=== PATIENT | male | born 1985 ===

== ENCOUNTER 2021-07-31 19:44 | Inpatient (IN) | payer SELFPAY ==
[~2021-07-31] VITALS: Ht 165.1 cm; Wt 75.9 kg
--- NOTE | 2021-07-31 20:14 | ED GI ---
General Chief Complaint: Abdominal/GI Problems Stated Complaint: BLOOD IN STOOL - ABD PAIN Source of Information: Spouse ( DOES ALL TALKING AND INTERPRETATION; ) Exam Limitations: Language Barrier (PT DOES NOT SPEAK MONTSERRATIAN) History of Present Illness Date Seen by Provider: Jul 31, 2021 Time Seen by Provider: 20:00 Initial Comments PT ARRIVES VIA POV FROM HOME WITH PT HAS BEEN HAVING ABDOMINAL PAIN AND BLOODY DIARRHEA X 3 WEEKS HAS HAD 4 BLOODY STOOLS TODAY PAIN INITIALLY WAS IN BOTH LOWER QUADRANTS, AND NOW IS MOSTLY IN LEFT UPPER QUADRANT HAD BEEN HAVING NAUSEA AND VOMITING, BUT NONE SINCE LAST Friday07/26/21 PT BEGAN RUNNING FEVER OF 100.4 LAST PM NORMALLY THE PAIN GOES AWAY AFTER HE HAS A BM, BUT SINCE LAST NIGHT THE PAIN HAS BEEN CONSTANT AND IN LEFT UPPER QUADRANT PT HAS BEEN URINATING NORMALLY HAS HAD DECREASED APPETITE, BUT IS DRINKING FLUIDS OK. HAD CHICKEN BROTH/SOUP AROUND 1500 TODAY. NO HISTORY OF SIMILAR OR ANY GI PROBLEMS OR ANY SURGERIES WENT TO [facility] ON FRIDAY FOR THIS PROBLEM-HAD SOME LAB, WAS TOLD HE WAS ANEMIC AND WAS STARTED ON IRON PILLS STATES PT TOOK 1 LEFT OVER AMOXIL THEY HAD AT HOME THIS AM BECAUSE HE THOUGHT IT MIGHT HELP PCP: [facility] Allergies and Home Medications Allergies Coded Allergies: No Known Drug Allergies (Unverified , 07/31/21) Patient Home Medication List Home Medication List Reviewed: Yes Review of Systems Review of Systems Constitutional: see HPI, fever Respiratory: No Symptoms Reported Cardiovascular: No Symptoms Reported Gastrointestinal: See HPI, Abdominal Pain, Diarrhea, Nausea, Rectal Bleeding, Vomiting Genitourinary: No Symptoms Reported Musculoskeletal: no symptoms reported Skin: no symptoms reported Psychiatric/Neurological: No Symptoms Reported Endocrine: No Symptoms Reported Hematologic/Lymphatic: No Symptoms Reported Past Rdwrmip-Xpqvdn-Zdgwdp Hx Patient Social History Tobacco Use?: No Smoking Status: Never a Smoker Smokeless Tobacco Frequency: Never a User Use of E-Cig and/or Vaping Jorje: Never a User Substance use?: No Alcohol Use?: Yes Alcohol type: Beer Alcohol Frequency: Once in a while Past Medical History Surgeries: No Respiratory: No Cardiac: No Neurological: No Reproductive Disorders: No Genitourinary: No Gastrointestinal: No Musculoskeletal: No Endocrine: No HEENT: No Cancer: No Psychosocial: No Integumentary: No Blood Disorders: No Physical Exam Vital Signs Vital Signs - First Documented 07/31/21 19:49 Temp 36.1 Pulse 104 Resp 18 B/P (MAP) 127/79 (95) Pulse Ox 99 O2 Delivery Room Air Capillary Refill : Height/Weight/BMI Height: '" Weight: lbs. oz. kg; BMI Method: General Appearance: WD/WN, no apparent distress, other (WALKS UPRIGHT AND MOVES WITHOUT DIFFICULTY, THEN LAYS COMPLETELY OUTSTRETCHED. 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, no motor/sensory deficits, alert, normal mood/affect, oriented x 3 Skin: normal color (PT IS ), warm/dry; No rash Focused Exam Sepsis Stage: Sepsis Possible Source: GI Tract/Intra-Abdominal Lactate Level 07/31/21 20:14: Lactic Acid Level 0.94 Time of Focused Exam: 21:30 Respiratory: Normal Breath Sounds, No Accessory Muscle Use, No Respiratory Distress Cardiovascular: Regular Rate, Rhythm, No Murmur Capillary Refill: Less Than 3 Seconds Skin: normal color, warm/dry Lactic Acid Level Laboratory Tests Test 07/31/21 20:14 Lactic Acid Level 0.94 MMOL/L (0.50-2.00) Within 3hrs of presentation: Admin fluids, Admin ABX, Blood cultures prior to ABX's, Focus exam, Lactate level Progress/Results/Core Measures Results/Orders Lab Results Laboratory Tests Test 07/31/21 20:14 07/31/21 20:18 07/31/21 20:40 Range/Units Lactic Acid Level 0.94 0.50-2.00 MMOL/L Procalcitonin 0.04 <0.10 NG/ML White Blood Count 18.4 H 4.3-11.0 10^3/uL Red Blood Count 3.51 L 4.30-5.52 10^6/uL Hemoglobin 10.0 L 13.3-17.7 g/dL Hematocrit 29 L 40-54 % Mean Corpuscular Volume 83 80-99 fL Mean Corpuscular Hemoglobin 29 25-34 pg Mean Corpuscular Hemoglobin Concent 34 32-36 g/dL Red Cell Distribution Width 12.2 10.0-14.5 % Platelet Count 658 H 130-400 10^3/uL Mean Platelet Volume 8.6 L 9.0-12.2 fL Immature Granulocyte % (Auto) 2 % Neutrophils (%) (Auto) 73 42-75 % Lymphocytes (%) (Auto) 8 L 12-44 % Monocytes (%) (Auto) 8 0-12 % Eosinophils (%) (Auto) 8 0-10 % Basophils (%) (Auto) 1 0-10 % Neutrophils # (Auto) 13.4 H 1.8-7.8 10^3/uL Lymphocytes # (Auto) 1.5 1.0-4.0 10^3/uL Monocytes # (Auto) 1.5 H 0.0-1.0 10^3/uL Eosinophils # (Auto) 1.5 H 0.0-0.3 10^3/uL Basophils # (Auto) 0.1 0.0-0.1 10^3/uL Immature Granulocyte # (Auto) 0.4 H 0.0-0.1 10^3/uL Neutrophils % (Manual) 77 % Lymphocytes % (Manual) 7 % Monocytes % (Manual) 9 % Eosinophils % (Manual) 5 % Metamyelocytes % 2 % Blood Morphology Comment NORMAL Erythrocyte Sedimentation Rate 35 H 0-15 MM/HR Prothrombin Time 14.9 H 12.2-14.7 SEC INR Comment 1.1 0.8-1.4 Activated Partial Thromboplast Time 34 24-35 SEC Sodium Level 135 135-145 MMOL/L Potassium Level 3.8 3.6-5.0 MMOL/L Chloride Level 103 98-107 MMOL/L Carbon Dioxide Level 21 21-32 MMOL/L Anion Gap 11 5-14 MMOL/L Blood Urea Nitrogen 5 L 7-18 MG/DL Creatinine 0.90 0.60-1.30 MG/DL Estimat Glomerular Filtration Rate 114 BUN/Creatinine Ratio 6 Glucose Level 107 H 70-105 MG/DL Calcium Level 8.3 L 8.5-10.1 MG/DL Corrected Calcium 8.8 8.5-10.1 MG/DL Magnesium Level 1.7 1.6-2.4 MG/DL Total Bilirubin 0.3 0.1-1.0 MG/DL Aspartate Amino Transf (AST/SGOT) 19 5-34 U/L Alanine Aminotransferase (ALT/SGPT) 18 0-55 U/L Alkaline Phosphatase 73 40-136 U/L C-Reactive Protein High Sensitivity 12.29 H 0.00-0.50 MG/DL Total Protein 6.7 6.4-8.2 GM/DL Albumin 3.4 3.2-4.5 GM/DL Amylase Level 72 25-125 U/L Lipase 125 H 8-78 U/L Urine Color YELLOW Urine Clarity CLEAR Urine pH 7.5 5-9 Urine Specific [place] 1.015 L 1.016-1.022 Urine Protein NEGATIVE NEGATIVE Urine Glucose (UA) NEGATIVE NEGATIVE Urine Ketones 1+ H NEGATIVE Urine Nitrite NEGATIVE NEGATIVE Urine Bilirubin NEGATIVE NEGATIVE Urine Urobilinogen 0.2 < = 1.0 MG/DL Urine Leukocyte Esterase NEGATIVE NEGATIVE Urine RBC (Auto) NEGATIVE NEGATIVE Urine RBC NONE /HPF Urine WBC 0-2 /HPF Urine Crystals PRESENT H /LPF Urine Amorphous Sediment RARE ALONSO PHOSPHATE H /LPF Urine Bacteria TRACE /HPF Urine Casts NONE /LPF Urine Mucus SMALL H /LPF Urine Culture Indicated NO My Orders Orders - RENEE PALENCIA DO Ed Iv/Invasive Line Start (07/31/21 20:00) Amylase (07/31/21 20:00) Cbc With Automated Diff (07/31/21 20:00) Comprehensive Metabolic Panel (07/31/21 20:00) Hs C Reactive Protein (07/31/21 20:00) Lipase (07/31/21 20:00) Magnesium (07/31/21 20:00) Protime With Inr (07/31/21 20:00) Partial Thromboplastin Time (07/31/21 20:00) Ua Culture If Indicated (07/31/21 20:00) Erythrocyte Sedimentation Rate (07/31/21 20:00) Ct Abdomen/Pelvis W (07/31/21 20:00) Ed Iv/Invasive Line Start (07/31/21 20:00) Ed Iv/Invasive Line Start (07/31/21 20:07) Lactated Ringers (Lr 1000 Ml Iv Solution (07/31/21 20:15) Iohexol Injection (Omnipaque 350 Mg/Ml 1 (07/31/21 20:15) Received Contrast (Hold Metformin- Contr (07/31/21 20:15) Ns (Ivpb) (Sodium Chloride 0.9% Ivpb Bag (07/31/21 20:15) Lactic Acid Analyzer (07/31/21 20:32) Procalcitonin (Pct) (07/31/21 20:32) Blood Culture (07/31/21 20:32) Manual Differential (07/31/21 20:18) Medications Given in ED Current Medications Medications Dose Ordered Sig/Loree Route Start Time Stop Time Status Last Admin Dose Admin Iohexol 100 ml ONCE ONCE IV 07/31/21 20:15 07/31/21 20:16 DC 07/31/21 21:00 93 ML Lactated Ringer's 1,000 ml @ 0 mls/hr Q0M ONCE IV 07/31/21 20:15 07/31/21 20:16 DC 07/31/21 20:29 999 MLS/HR Sodium Chloride 100 ml ONCE ONCE IV 07/31/21 20:15 07/31/21 20:16 DC 07/31/21 21:00 80 ML Vital Signs/I&O 07/31/21 19:49 Temp 36.1 Pulse 104 Resp 18 B/P (MAP) 127/79 (95) Pulse Ox 99 O2 Delivery Room Air Progress Progress Note : Progress Note SEPSIS PROTOCOL INITIATED GIVEN IV FLUIDS, AND ANTIBIOTICS PT DID PRODUCE A STOOL SPECIMEN IN ER--HEMOCCULT + NO DETERIORATION IN PT'S CONDITION DURING ER STAY Diagnostic Imaging Comments CT ABDOMEN/PELVIS--PER RADIOLOGIST REPORT AT 2130 There is an approximately 1 cm lucency in the dome of the left lobe of the liver which likely represents a cyst. Otherwise, there is no evidence of focal hepatic, gallbladder, pancreatic, splenic or adrenal gland abnormality. Kidneys are also unremarkable in appearance. There is no evidence of appendiceal inflammation. There is significant mural thickening throughout the transverse portion of the colon which extends into the descending and sigmoid colon. There is mild pericolonic inflammation without organized fluid collection identified. Unopacified bladder is unremarkable in appearance. IMPRESSION: Mural thickening initiating at the hepatic flexure and extending to the sigmoid colon highly suggestive of colitis. This may be infectious in nature and clinical correlation would be useful. There is no evidence of perforation, abscess or other acute abnormality within the abdomen or pelvis. Reviewed: Reviewed by Me Departure Communication (Admissions) 2111--DR. CANO HERE IN ER TO SEE PT. WILL SEE PT IN CONSULT.. HE ADVISES TO HOLD ALL ANTIBIOTICS UNTIL PT HAS A BOWEL MOVEMENT AND STOOL SPECIMEN OBTAINED 2113--SPOKE WITH DR. LAWRENCE, HOSPITALIST FOR [facility], ACCEPTS PT FOR ADMIT Impression Primary Impression: Sepsis Additional Impressions: Colitis Anemia Lower GI bleed Disposition: ADMITTED INPATIENT Condition: Stable Admissions Decision to Admit Reason: Admit from ER (General) Decision to Admit/Date: Jul 31, 2021 Time/Decision to Admit Time: 21:15 Departure-Patient Inst. Referrals: [facility] [place] (PCP/Family) Primary Care Physician RENEE PALENCIA DO Jul 31, 2021 20:14
[2021-07-31] MEDS ORDERED: HOLD METFORMIN - RECEIVED CONTRAST 20 ML VIAL IV SCH (20:15)
[2021-07-31] MEDS ORDERED: IOHEXOL 350 MG/ML 100 ML (OMNIPAQUE 350) VIAL IV ONE (20:15)
[2021-07-31] MEDS ORDERED: LACTATED RINGERS 1,000 ML IV ONE ×3 (20:15→23:35)
[2021-07-31] MEDS ORDERED: NS 100 ML (IVPB) BAG IV ONE (20:15)
[2021-07-31 20:33] LABS: BASOPHILS # (AUTO) 0.1 10^3/uL (0.0-0.1); BASOPHILS % (AUTO) 1 % (0-10); EOSINOPHILS # (AUTO) 1.5 10^3/uL (0.0-0.3); EOSINOPHILS % (AUTO) 8 % (0-10); HEMATOCRIT 29 % (40-54); LYMPHOCYTES # (AUTO) 1.5 10^3/uL (1.0-4.0); LYMPHOCYTES % (AUTO) 8 % (12-44); MEAN CORPUSCULAR HEMOGLOBIN 29 pg (25-34); MEAN CORPUSCULAR HGB CONC 34 g/dL (32-36); MEAN CORPUSCULAR VOLUME 83 fL (80-99); MEAN PLATELET VOLUME 8.6 fL (9.0-12.2); MONOCYTES # (AUTO) 1.5 10^3/uL (0.0-1.0); MONOCYTES % (AUTO) 8 % (0-12); NEUTROPHILS # (AUTO) 13.4 10^3/uL (1.8-7.8); NEUTROPHILS % (AUTO) 73 % (42-75); PLATELET COUNT 658 10^3/uL (130-400); WHITE BLOOD COUNT 18.4 10^3/uL (4.3-11.0)
[2021-07-31 20:47] LABS: INR 1.1 (0.8-1.4); PROTHROMBIN TIME PATIENT 14.9 SEC (12.2-14.7)
[2021-07-31 20:48] LABS: BILIRUBIN,URINE NEGATIVE (NEGATIVE); CLARITY,URINE CLEAR; COLOR,URINE YELLOW; GLUCOSE, URINE (UA) NEGATIVE (NEGATIVE); KETONES,URINE 1+ (NEGATIVE); LEUKOCYTE ESTERASE ,URINE NEGATIVE (NEGATIVE); NITRITE,URINE NEGATIVE (NEGATIVE); PH,URINE 7.5 (5-9); PROTEIN,URINE NEGATIVE (NEGATIVE)
[2021-07-31 20:54] LABS: ALBUMIN 3.4 GM/DL (3.2-4.5); BILIRUBIN,TOTAL 0.3 MG/DL (0.1-1.0); CALCIUM 8.3 MG/DL (8.5-10.1); CREATININE SERUM 0.9 MG/DL (0.60-1.30); MAGNESIUM 1.7 MG/DL (1.6-2.4); POTASSIUM 3.8 MMOL/L (3.6-5.0); TOTAL PROTEIN 6.7 GM/DL (6.4-8.2)
[2021-07-31 21:07] LABS: EOSINOPHILS % (MANUAL) 5 %; LYMPHOCYTES % (MANUAL) 7 %; METAMYELOCYTES % 2 %; MONOCYTES % (MANUAL) 9 %; NEUTROPHILS % (MANUAL) 77 %; RBC MORPH NORMAL
[2021-07-31 21:08] LABS: ERYTHROCYTE SEDIMENTATION RATE 35 MM/HR (0-15)
[2021-07-31 21:14] LABS: AMORPHOUS SEDIMENT,UR RARE AMOR PHOSPHATE /LPF; BACTERIA,URINE TRACE /HPF; WBC,URINE 0-2 /HPF
--- NOTE | 2021-07-31 21:27 | Diagnostic Imaging Report ---
PROCEDURE: CT abdomen and pelvis with contrast. TECHNIQUE: Multiple contiguous axial images were obtained through the abdomen and pelvis after administration of intravenous contrast. Auto Exposure Controls were utilized during the CT exam to meet ALARA standards for radiation dose reduction. All CT scans use one or more of the following dose optimizing techniques: automated exposure control, MA and/or KvP adjustment based on patient size and exam type or iterative reconstruction. INDICATION: Diarrhea with bloody stools and abdominal pain. COMPARISON: There is no previous study for comparison. There is an approximately 1 cm lucency in the dome of the left lobe of the liver which likely represents a cyst. Otherwise, there is no evidence of focal hepatic, gallbladder, pancreatic, splenic or adrenal gland abnormality. Kidneys are also unremarkable in appearance. There is no evidence of appendiceal inflammation. There is significant mural thickening throughout the transverse portion of the colon which extends into the descending and sigmoid colon. There is mild pericolonic inflammation without organized fluid collection identified. Unopacified bladder is unremarkable in appearance. IMPRESSION: Mural thickening initiating at the hepatic flexure and extending to the sigmoid colon highly suggestive of colitis. This may be infectious in nature and clinical correlation would be useful. There is no evidence of perforation, abscess or other acute abnormality within the abdomen or pelvis. Dictated by: Dictated on workstation # [id number]
[2021-07-31] MEDS ORDERED: PIPERACILLIN SODIUM/TAZOBACTAM 4.5 GM in NS (IVPB) 100 ML IV ONE (21:45)
[2021-07-31 23:15] VITALS: BP 118/73
[2021-07-31] MEDS ORDERED: ACETAMINOPHEN 500 MG TAB (TYLENOL) PO PRN (23:30)
[2021-07-31] MEDS ORDERED: fentaNYL INJ 100 MCG/2 ML AMP IV PRN (23:30)
[2021-07-31] MEDS ORDERED: ONDANSETRON 4 MG/2 ML (SDV) Z0FRAN IV PRN (23:30)
[2021-07-31] MEDS: LACTATED RINGERS 1,000 ML IV SCH (23:41)
[2021-07-31] MEDS: VANCOMYCIN INJECTION 750 MG in NS (IVPB) 250 ML IV SCH (23:41)
[2021-08-01] VITALS (8 sets, daily range): BP systolic 84–124; BP diastolic 45–77
--- NOTE | 2021-08-01 00:04 | Consultation - Surgery ---
History of Present Illness History of Present Illness Patient Consulted On(amy/time) 07/31/21 23:58 Time Seen by Provider: 21:09 History of Present Illness Surgery asked to consult regarding abdominal pain and rectal bleed. HPI per ED: PT ARRIVES VIA POV FROM HOME WITH , PT HAS BEEN HAVING ABDOMINAL PAIN AND BLOODY DIARRHEA X 3 WEEKS, HAS HAD 4 BLOODY STOOLS TODAY, PAIN INITIALLY WAS IN BOTH LOWER QUADRANTS, AND NOW IS MOSTLY IN LEFT UPPER QUADRANT, HAD BEEN HAVING NAUSEA AND VOMITING, BUT NONE SINCE LAST Friday07/26/21, PT BEGAN RUNNING FEVER OF 100.4 LAST PM, NORMALLY THE PAIN GOES AWAY AFTER HE HAS A BM, BUT SINCE LAST NIGHT THE PAIN HAS BEEN CONSTANT AND IN LEFT UPPER QUADRANT, PT HAS BEEN URINATING NORMALLY, HAS HAD DECREASED APPETITE, BUT IS DRINKING FLUIDS OK. HAD CHICKEN BROTH/SOUP AROUND 1500 TODAY. NO HISTORY OF SIMILAR OR ANY GI PROBLEMS OR ANY SURGERIES, WENT TO [facility] ON FRIDAY FOR THIS PROBLEM-HAD SOME LAB, WAS TOLD HE WAS ANEMIC AND WAS STARTED ON IRON PILLS, STATES PT TOOK 1 LEFT OVER AMOXIL THEY HAD AT HOME THIS AM BECAUSE HE THOUGHT IT MIGHT HELP Pt speaks only [place] Islander, but does appear to understand some Hungarian. I obtained this information with his translating. He stated the abdominal pain started about 3 weeks ago, then diarrhea started 2 1/2 weeks ago and then the bleeding. When I was talking to him (in the ER) he was not having any abdominal pain. States he has been weak for past 6-7 days. He has only been able to have some broth and fruits. He denies anyone in the household with similar symptoms and has not traveled anywhere. Has not eaten anything out of the ordinary. Denies any family members with intestinal problems. Pain last night was 10 out of 10 and sharp. His mentioned that she thinks he has looked pale recently. He reports no strength and has been having a hard time doing anything because he gets tired quickly. Allergies and Home Medications Allergies Coded Allergies: No Known Drug Allergies (Unverified , 07/31/21) Patient Home Medication List Home Medication List Reviewed: Yes Past Tvfxhsp-Hxvxgn-Hpoohe Hx Patient Social History Smoking Status: Never a Smoker Alcohol Use?: Yes Have you traveled recently?: No Surgeries History of Surgeries: No Respiratory History of Respiratory Disorde: No Cardiovascular History of Cardiac Disorders: No Neurological History of Neurological Disord: No Reproductive System Hx Reproductive Disorders: No Genitourinary History of Genitourinary Disor: No Gastrointestinal History of Gastrointestinal Di: No Musculoskeletal History of Musculoskeletal Dis: No Endocrine History of Endocrine Disorders: No HEENT History of HEENT Disorders: No Cancer History of Cancer: No Psychosocial History of Psychiatric Problem: No Integumentary History of Skin or Integumenta: No Blood Transfusions History of Blood Disorders: No Family Medical History Significant Family History: Diabetes (Mother) Review of Systems-General Constitutional: No chills; fever, malaise, weakness EENTM: No blurred vision, No double vision, No mouth swelling, No epistaxis Respiratory: No cough, No dyspnea on exertion, No short of breath Cardiovascular: No chest pain, No palpitations Gastrointestinal: abdominal pain (LUQ); No hematemesis, No jaundice; loss of appetite; No melena; nausea Genitourinary: No dysuria, No frequency, No hematuria Musculoskeletal: No joint swelling, No muscle pain, No muscle stiffness Skin: No change in color, No change in hair/nails Psychiatric/Neurological: Denies Anxiety, Denies Depressed, Denies Seizure, Denies Tremors Physical Exam-General Problems Physical Exam Vital Signs Vital Signs - First Documented 07/31/21 19:49 Temp 36.1 Pulse 104 Resp 18 B/P (MAP) 127/79 (95) Pulse Ox 99 O2 Delivery Room Air Capillary Refill : Less Than 3 Seconds General Appearance: WD/WN, no apparent distress Eyes: Bilateral Eye PERRL, Bilateral Eye EOMI HEENT: pharynx normal; No scleral icterus (R), No scleral icterus (L) Neck: non-tender, full range of motion, supple Respiratory: chest non-tender, lungs clear, normal breath sounds, no respiratory distress, no accessory muscle use Cardiovascular: no murmur, tachycardia Gastrointestinal: non tender, soft, no organomegaly, hernia (small umbilical) Back: no CVA tenderness, no vertebral tenderness Extremities: normal range of motion, no pedal edema, no calf tenderness 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, no motor/sensory deficits, alert, normal mood/affect, oriented x 3 Skin: warm/dry, pallor Lymphatic: no adenopathy (neck, axilla or groin) Data Review Labs Laboratory Tests 07/31/21 20:14: Lactic Acid Level 0.94, Procalcitonin 0.04 07/31/21 20:18: White Blood Count 18.4H, Red Blood Count 3.51L, Hemoglobin 10.0L, Hematocrit 29L , Mean Corpuscular Volume 83, Mean Corpuscular Hemoglobin 29, Mean Corpuscular Hemoglobin Concent 34, Red Cell Distribution Width 12.2, Platelet Count 658H, M enrrique Platelet Volume 8.6L, Immature Granulocyte % (Auto) 2, Neutrophils (%) (Auto) 73, Lymphocytes (%) (Auto) 8L, Monocytes (%) (Auto) 8, Eosinophils (%) (Auto) 8, Basophils (%) (Auto) 1, Neutrophils # (Auto) 13.4H, Lymphocytes # (Auto) 1.5, Monocytes # (Auto) 1.5H, Eosinophils # (Auto) 1.5H, Basophils # (Auto) 0.1, Immature Granulocyte # (Auto) 0.4H, Neutrophils % (Manual) 77, Lymphocytes % (Manual) 7, Monocytes % (Manual) 9, Eosinophils % (Manual) 5, Metamyelocytes % 2, Blood Morphology Comment NORMAL, Erythrocyte Sedimentation Rate 35H, Prothrombin Time 14.9H, INR Comment 1.1, Activated Partial Thrombo plast Time 34, Sodium Level 135, Potassium Level 3.8, Chloride Level 103, Carbon Dioxide Level 21, Anion Gap 11, Blood Urea Nitrogen 5L, Creatinine 0.90, Estimat Glomerular Filtration Rate 114, BUN/Creatinine Ratio 6, Glucose Level 107H, Calcium Level 8.3L, Corrected Calcium 8.8, Magnesium Level 1.7, Total Bilirubin 0.3, Aspartate Amino Transf (AST/SGOT) 19, Alanine Aminotransferase (ALT/SGPT) 18, Alkaline Phosphatase 73, C-Reactive Protein High Sensitivity 12.29H, Total Protein 6.7, Albumin 3.4, Amylase Level 72, Lipase 125H 07/31/21 20:40: Urine Color YELLOW, Urine Clarity CLEAR, Urine pH 7.5, Urine Specific [place] 1.015L, Urine Protein NEGATIVE, Urine Glucose (UA) NEGATIVE, Urine Ketones 1+H, Urine Nitrite NEGATIVE, Urine Bilirubin NEGATIVE, Urine Urobilinogen 0.2, Urine Leukocyte Esterase NEGATIVE, Urine RBC (Auto) NEGATIVE, Urine RBC NONE, Urine WBC 0-2, Urine Crystals PRESENTH, Urine Amorphous Sediment RARE ALONSO PHOSPHATEH, Urine Bacteria TRACE, Urine Casts NONE, Urine Mucus SMALLH, Urine Culture Indicated NO 07/31/21 21:51: Stool Occult Blood Immunoassay POSITIVEH Radiology Date of Exam:07/31/21 CT ABDOMEN/PELVIS W PROCEDURE: CT abdomen and pelvis with contrast. TECHNIQUE: Multiple contiguous axial images were obtained through the abdomen and pelvis after administration of intravenous contrast. Auto Exposure Controls were utilized during the CT exam to meet ALARA standards for radiation dose reduction. All CT scans use one or more of the following dose optimizing techniques: automated exposure control, MA and/or KvP adjustment based on patient size and exam type or iterative reconstruction. INDICATION: Diarrhea with bloody stools and abdominal pain. COMPARISON: There is no previous study for comparison. There is an approximately 1 cm lucency in the dome of the left lobe of the liver which likely represents a cyst. Otherwise, there is no evidence of focal hepatic, gallbladder, pancreatic, splenic or adrenal gland abnormality. Kidneys are also unremarkable in appearance. There is no evidence of appendiceal inflammation. There is significant mural thickening throughout the transverse portion of the colon which extends into the descending and sigmoid colon. There is mild pericolonic inflammation without organized fluid collection identified. Unopacified bladder is unremarkable in appearance. IMPRESSION: Mural thickening initiating at the hepatic flexure and extending to the sigmoid colon highly suggestive of colitis. This may be infectious in nature and clinical correlation would be useful. There is no evidence of perforation, abscess or other acute abnormality within the abdomen or pelvis. Dictated on workstation # [id number] Dict: 07/31/212112 Trans: 07/31/212125 [facility] [id number] Interpreted by: BILLY JARAMILLO MD Assessment/Plan Assessment/Plan Assessment/Plan Rectal bleed Anemia Colitis - Left sided Abdominal pain Leukocytosis I had a long discussion with the pt and his ; I gave him 2 options stay overnight or go home. I told them that I thought the best thing for him to do is stay; that way we can check labs in the am, see if he runs another fever and order enemas for planned Flexible sigmoidoscopy. My concern if he goes home is that his WBC is very elevated at appx 18 and could indicate infection. He is f eeling weak, is anemic and tachycardic; all could be bad signs. I would also like to get a stool sample so we can test for bacteria, etc and start ABX. I went over the risks and complications of the Flexible sigmoidoscopy; which include but not limited to pain, bleeding, infection and even intestinal perforation. I reviewed the CT myself and told the pt and his my thoughts. I also discussed this case with Dr. Ritchie. They agreed to stay and I will order enemas and consent for procedure. MEGHAN CANO DO Aug 01, 2021 00:04
[2021-08-01] MEDS: VANCOMYCIN INJECTION 750 MG in NS (IVPB) 250 ML IV SCH (00:57)
[2021-08-01] MEDS: PIPERACILLIN SODIUM/TAZOBACTAM 4.5 GM in NS (IVPB) 100 ML IV SCH ×2 (03:40→11:59)
[2021-08-01] MEDS: LACTATED RINGERS 1,000 ML IV SCH (03:41)
[2021-08-01 05:28] LABS: BASOPHILS # (AUTO) 0.1 10^3/uL (0.0-0.1); BASOPHILS % (AUTO) 1 % (0-10); EOSINOPHILS # (AUTO) 1.6 10^3/uL (0.0-0.3); EOSINOPHILS % (AUTO) 9 % (0-10); HEMATOCRIT 27 % (40-54); HEMOGLOBIN 8.8 g/dL (13.3-17.7); LYMPHOCYTES # (AUTO) 1.5 10^3/uL (1.0-4.0); LYMPHOCYTES % (AUTO) 9 % (12-44); MEAN CORPUSCULAR HEMOGLOBIN 28 pg (25-34); MEAN CORPUSCULAR HGB CONC 33 g/dL (32-36); MEAN CORPUSCULAR VOLUME 84 fL (80-99); MEAN PLATELET VOLUME 8.7 fL (9.0-12.2); MONOCYTES # (AUTO) 1.6 10^3/uL (0.0-1.0); MONOCYTES % (AUTO) 9 % (0-12); NEUTROPHILS # (AUTO) 12.1 10^3/uL (1.8-7.8); NEUTROPHILS % (AUTO) 71 % (42-75); PLATELET COUNT 560 10^3/uL (130-400); WHITE BLOOD COUNT 17.1 10^3/uL (4.3-11.0)
[2021-08-01 05:41] LABS: ALBUMIN 2.9 GM/DL (3.2-4.5)
[2021-08-01 05:42] LABS: POTASSIUM 4.2 MMOL/L (3.6-5.0)
[2021-08-01 05:43] LABS: CALCIUM 8.7 MG/DL (8.5-10.1)
[2021-08-01 05:44] LABS: TOTAL PROTEIN 5.6 GM/DL (6.4-8.2)
[2021-08-01 05:46] LABS: BILIRUBIN,TOTAL 0.4 MG/DL (0.1-1.0)
[2021-08-01 05:48] LABS: CREATININE SERUM 0.75 MG/DL (0.60-1.30)
--- NOTE | 2021-08-01 06:09 | Progress Note - Surgery ---
CORDELIA UMANA 08/01/21 0609: Subjective Date Seen by a Provider: Aug 01, 2021 Time Seen by a Provider: 06:15 Subjective/Events-last exam Pt does not speak much Arabic, is translating to Montenegrin for us. Pt reports he is feeling better than when he came in last night. He states his LUQ and LLQ abdominal pain is only 1/10 now. He had one bowel movement overnight that was diarrhea. It had a little bit of bright red blood in it, but he denies black, tarry stool. No N/V at this time. He last ate around 3pm yesterday and has had only water after midnight. There was not urine output recorded on his chart, but his states that he has been going and having no burning with uri nation. He had not had a fever since yesterday, but his latest temperature was borderline at 37.7. Pt denies CP, SOB, and palpitations at this time. Review of Systems General: Fatigue, Malaise (improved from last night) HEENT: No Head Aches, No Visual Changes Pulmonary: No Dyspnea, No Cough Cardiovascular: No: Chest Pain, Palpitations Gastrointestinal: Abdominal Pain (1/10), Diarrhea, Hematochezia; No: Nausea, Vomiting Genitourinary: No Dysuria, No Frequency Musculoskeletal: No: neck pain, leg pain Neurological: No: Change in speech, Confusion Focused Exam Lactate Level 07/31/21 20:14: Lactic Acid Level 0.94 Time of Focused Exam: 21:30 Respiratory: Lungs Clear, Normal Breath Sounds, No Respiratory Distress Cardiovascular: No Murmur, Tachycardia Peripheral Pulses: 2+ Radial Pulses (R), 2+ Radial Pulses (L) Skin: normal color, warm/dry Objective Exam Vital Signs Date Time Temp Pulse Resp B/P (MAP) Pulse Ox O2 Delivery O2 Flow Rate FiO2 08/01/21 03:57 37.7 95 20 113/57 (75) 99 Room Air 08/01/21 01:00 95 08/01/21 00:57 94 20 119/74 (89) 100 Room Air 07/31/21 23:15 Room Air 07/31/21 23:15 36.9 83 20 118/73 (88) 100 Room Air 07/31/21 22:20 36.5 97 20 136/72 100 Room Air 07/31/21 21:30 36.6 114 137/82 100 Room Air 07/31/21 19:49 36.1 104 18 127/79 (95) 99 Room Air I & O 08/01/21 07:00 Intake Total 3700 ml Balance 3700 ml Capillary Refill : Less Than 3 Seconds General Appearance: No Apparent Distress, WD/WN Respiratory: Normal Breath Sounds, No Accessory Muscle Use, No Respiratory Distress Cardiovascular: No Murmur, Tachycardia Peripheral Pulses: 2+ Radial Pulses (R), 2+ Radial Pulses (L) Gastrointestinal: non tender, soft, no organomegaly, hernia (small umbilical) Extremity: Normal Inspection, No Pedal Edema Neurologic/Psychiatric: Alert, Oriented x3, Normal Mood/Affect Skin: Normal Color, Warm/Dry Results Lab Laboratory Tests 07/31/21 20:14: Lactic Acid Level 0.94, Procalcitonin 0.04 07/31/21 20:18: White Blood Count 18.4H, Red Blood Count 3.51L, Hemoglobin 10.0L, Hematocrit 29L , Mean Corpuscular Volume 83, Mean Corpuscular Hemoglobin 29, Mean Corpuscular Hemoglobin Concent 34, Red Cell Distribution Width 12.2, Platelet Count 658H, Mean Platelet Volume 8.6L, Immature Granulocyte % (Auto) 2, Neutrophils (%) (Auto) 73, Lymphocytes (%) (Auto) 8L, Monocytes (%) (Auto) 8, Eosinophils (%) (Auto) 8, Basophils (%) (Auto) 1, Neutrophils # (Auto) 13.4H, Lymphocytes # (Auto) 1.5, Monocytes # (Auto) 1.5H, Eosinophils # (Auto) 1.5H, Basophils # (Auto) 0.1, Immature Granulocyte # (Auto) 0.4H, Neutrophils % (Manual) 77, Lymph ocytes % (Manual) 7, Monocytes % (Manual) 9, Eosinophils % (Manual) 5, Metamyelocytes % 2, Blood Morphology Comment NORMAL, Erythrocyte Sedimentation Rate 35H, Prothrombin Time 14.9H, INR Comment 1.1, Activated Partial Thromboplast Time 34, Sodium Level 135, Potassium Level 3.8, Chloride Level 103, Carbon Dioxide Level 21, Anion Gap 11, Blood Urea Nitrogen 5L, Creatinine 0.90, Estimat Glomerular Filtration Rate 114, BUN/Creatinine Ratio 6, Glucose Level 107H, Calcium Level 8.3L, Corrected Calcium 8.8, Magnesium Level 1.7, Total B ilirubin 0.3, Aspartate Amino Transf (AST/SGOT) 19, Alanine Aminotransferase (ALT/SGPT) 18, Alkaline Phosphatase 73, C-Reactive Protein High Sensitivity 12.29H, Total Protein 6.7, Albumin 3.4, Amylase Level 72, Lipase 125H 07/31/21 20:40: Urine Color YELLOW, Urine Clarity CLEAR, Urine pH 7.5, Urine Specific [place] 1.015L, Urine Protein NEGATIVE, Urine Glucose (UA) NEGATIVE, Urine Ketones 1+H, Urine Nitrite NEGATIVE, Urine Bilirubin NEGATIVE, Urine Urobilinogen 0.2, Urine Leukocyte Esterase NEGATIVE, Urine RBC (Auto) NEGATIVE, Urine RBC NONE, Urine WB C 0-2, Urine Crystals PRESENTH, Urine Amorphous Sediment RARE ALONSO PHOSPHATEH, Urine Bacteria TRACE, Urine Casts NONE, Urine Mucus SMALLH, Urine Culture Indicated NO 07/31/21 21:51: Stool Occult Blood Immunoassay POSITIVEH 08/01/21 05:11: White Blood Count 17.1H, Red Blood Count 3.17L, Hemoglobin 8.8L, Hematocrit 27L, Mean Corpuscular Volume 84, Mean Corpuscular Hemoglobin 28, Mean Corpuscular Hemoglobin Concent 33, Red Cell Distribution Width 12.2, Platelet Count 560H, Mean Platelet Volume 8.7L, Immature Granulocyte % (Auto) 1, Neutrophils (%) (Auto) 71, Lymphocytes (%) (Auto) 9L, Monocytes (%) (Auto) 9, Eosinophils (%) (Auto) 9, Basophils (%) (Auto) 1, Neutrophils # (Auto) 12.1H, Lymphocytes # (Auto) 1.5, Monocytes # (Auto) 1.6H, Eosinophils # (Auto) 1.6H, Basophils # (Auto) 0.1, Immature Granulocyte # (Auto) 0.2H, Sodium Level 137, Potassium Leve l 4.2, Chloride Level 104, Carbon Dioxide Level 21, Anion Gap 12, Blood Urea Nitrogen 3L, Creatinine 0.75, Estimat Glomerular Filtration Rate 120, BUN/Creatinine Ratio 4, Glucose Level 123H, Calcium Level 8.7, Corrected Calcium 9.6, Total Bilirubin 0.4, Aspartate Amino Transf (AST/SGOT) 14, Alanine Aminotransferase (ALT/SGPT) 12, Alkaline Phosphatase 72, Total Protein 5.6L, Albumin 2.9L Assessment/Plan Assessment/Plan Assessment/Plan Rectal bleed Anemia Colitis - Left sided Abdominal pain Leukocytosis WBC- decreased to 17.1 from 18.4 Hgb- dec to 8.8 from 10.0 Enemas for planned Flexible sigmoidoscopy at 8am Stool culture in progress Continue antibiotics Continue IVFs Pain management as needed Monitor labs and vitals RAMON DELEON DO 08/01/21 1444: Subjective Time Seen by a Provider: 14:36 Subjective/Events-last exam Pt seen and examined states he is doing better today, no fever last night but did have some pain. He did his enemas to day and BMs clear now. Review of Systems General: Fatigue HEENT: No Head Aches, No Visual Changes Pulmonary: No Dyspnea, No Cough Cardiovascular: No: Chest Pain, Palpitations Gastrointestinal: Abdominal Pain (06/04), Diarrhea, Hematochezia; No: Nausea, Vomiting Objective Exam General Appearance: No Apparent Distress, WD/WN Respiratory: Lungs Clear, Normal Breath Sounds, No Accessory Muscle Use, No Respiratory Distress Cardiovascular: Regular Rate, Rhythm, No Murmur Gastrointestinal: non tender, soft, no organomegaly, hernia (small umbilical) Assessment/Plan Assessment/Plan Assessment/Plan Rectal bleed Anemia Colitis - Left sided Abdominal pain Leukocytosis WBC- decreased to 17.1 from 18.4 Hgb- dec to 8.8 from 10.0 Enemas for planned Flexible sigmoidoscopy today Stool culture in progress Continue antibiotics Continue IVFs Pain management as needed Monitor labs and vitals Supervisory-Addendum Brief Verification & Attestation Participated in pt care: history, MDM, physical Personally performed: exam, history, MDM, supervision of care Care discussed with: Medical Student Procedures: n/a Verification and Attestation of Medical Student E/M Service A medical student performed and documented this service. I then reviewed and verified all information documented by the medical student and made modifications to such information, when appropriate. I personally performed a physical exam, medical decision making and then discussed any differences between the notes and made revisions as necessary to create one note. Ramon Deleon , 08/01/21 , 14:44 CORDELIA UMANA Aug 01, 2021 06:09 RAMON DELEON DO Aug 01, 2021 14:44
[2021-08-01] MEDS ORDERED: CATHETER FLUSH 10 ML SYR IVP PRN (06:30)
--- NOTE | 2021-08-01 07:26 | Physician Query Clarification ---
PQ-Uncertain Diagnosis Admission/Discharge Admission Date: Jul 31, 2021 at 21:15 Discharge Date: Dr. Talbot, The medical record reflects the following clinical scenario: History/Risk Factors: blood in stooles, anemia, colitis Clinical Findings: Lactic acid 0.94, WBC 18.4, T 36.1, P 114, R 20 Treatment: IV Piperacillin, IV Vancomycin Question: Is sepsis a clinically valid diagnosis? Sepsis was documented in the ER record with no further documentation in the medical record. Please document a response in Progress Note or Discharge Summary. 1. Yes, clinically valid, condition resolved. 2. No, condition ruled out. 3. Other, with explanation of clinical findings. 4. Undetermined, no explanation for clinical findings. PHYSICIAN RESPONSE Diagnosis clinically valid: Yes, Conditon resolved Please remember a lack of response to the above will prompt a phone page by CDI/Coding staff. In responding to this query, please exercise your independent professional judgment. The purpose of this communication is to more accurately reflect the complexity of your patients condition. The fact that a question is asked does not imply that any particular answer is desired or expected. Thank you for your timely response to this clarification. Requestors name: Huyen THIS PHYSICIAN QUERY FORM IS A PERMANENT PART OF THE MEDICAL RECORD HUYEN CORTEZ Aug 01, 2021 07:26 TERE TALBOT DO Aug 01, 2021 11:38
[2021-08-01] MEDS ORDERED: VANCOMYCIN 1 GM/NS 250 ML IVPB IV SCH ×2 (08:00)
[2021-08-01] MEDS ORDERED: LACTATED RINGERS 1,000 ML IV SCH (08:00)
--- NOTE | 2021-08-01 10:35 | History & Physical-Hospitalist ---
DEBBIE ORTEGA 08/01/21 1035: History of Present Illness HPI/Chief Complaint HPI: Bloody Stools, Abdominal Pain CC: Patient is a 36 yo M who presented to the ER on 07/31 with abdominal pain and bloody diarrhea for the past 3 weeks. Speaks Rwandan and accompanied by who translates. Pain is often in both lower quadrants. Pain normally goes away after a bowel movement but remained constant in the LUQ since the previous night. Had nausea, vomiting, and fever. Also presented to [facility] on 07/27 for the issue in which patient was told he is anemic and started on Fe supplementation. Upon admission, patient had elevated CRP at 12.9, elevated Lipase at 125, elevated WBC at 18.4, positive stool occult blood, and positive urine crystals, negative C diff toxins . Visiting the patient, he was up on his feet and appeared to be doing well. Reported that he was doing much better and did not have any pain today. Reports having a bloody bowel movement since admission. 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 Patients Allergies have been reviewed. Allergies Allergies Coded Allergies No Known Drug Allergies (Unverified07/31/21) Past Bmasppl-Lkaneh-Efnthd Hx Patient Social History Tobacco Use?: No Smoking Status: Never a Smoker Smokeless Tobacco Frequency: Never a User Use of E-Cig and/or Vaping Jorje: Never a User Substance use?: No Alcohol Use?: Yes Alcohol type: Beer Alcohol Frequency: Once in a while Pt feels they are or have been: No Immunizations Up To Date First/Initial COVID19 Vaccinat: NO Current Status Advance Directives: No Communicates: Verbally Primary Language: Rwandan Preferred Spoken Language: Rwandan Is interpretation needed?: Yes Implanted or Applied Medical D: None Past Medical History Blood Disorders: No Family Medical History Diabetes (Mother) Review of Systems Constitutional: No chills, No diaphoresis, No fever, No malaise EENTM: No hearing loss, No blurred vision Respiratory: No cough, No short of breath Cardiovascular: No chest pain, No edema Gastrointestinal: No abdominal pain; other (Bloody stools) Genitourinary: No decreased output, No dysuria Musculoskeletal: No back pain, No muscle pain Skin: No change in color, No dryness Psychiatric/Neurological: No Symptoms Reported Physical Exam Physical Exam Vital Signs Vital Signs - First Documented 07/31/21 19:49 Temp 36.1 Pulse 104 Resp 18 B/P (MAP) 127/79 (95) Pulse Ox 99 O2 Delivery Room Air Capillary Refill : Less Than 3 Seconds Height, Weight, BMI Height: '" Weight: lbs. oz. kg; 27.84 BMI Method: Respiratory: Chest Non Tender, Lungs Clear, Normal Breath Sounds, No Accessory Muscle Use, No Respiratory Distress Cardiovascular: Regular Rate, Rhythm, No Edema Gastrointestinal: Normal Bowel Sounds, No Organomegaly, Non Tender Neurologic/Psychiatric: Alert, Oriented x3, No Motor/Sensory Deficits, Normal Mood/Affect Skin: Normal Color, Warm/Dry Results Results/Procedures Labs Laboratory Tests 07/31/21 20:18 08/01/21 05:11 Patient resulted labs reviewed. Assessment/Plan Admission Diagnosis Abdominal Pain Bloody stools Leukocytosis Anemia Inflammatory process Assessment and Plan Assessment: Abdominal Pain Bloody stools Leukocytosis- WBC 18.4 on 07/31 Anemia- Hgb 10 on 07/31 Elevated CRP- 12.9 on 07/31 Plan: 08/01 Patient on vancomycin and zosyn Consult surgery Supportive care RADHA TALBOT DO 08/02/21 0514: History of Present Illness HPI/Chief Complaint Chief Complaint: Hematochezia while While HPI: This is a 36yoHM patient of [facility] who has no medical history. He presented to the Hospital with Hematochezia and Anemia. He stabilized and was placed on Zosyn. Dr. Deleon performed a flex sig and that showed evidence of Ulcerative Colitis so he will be placed on steroids and have a close follow-up with Dr. Deleon. 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 () Exam Limitations: no limitations Past Vnljzxd-Vhpkwj-Qyscev Hx Patient Social History Marrital Status: Employed/Student: employed Smoking Status: Never a Smoker Review of Systems Constitutional: see HPI, weakness EENTM: no symptoms reported Respiratory: no symptoms reported Cardiovascular: no symptoms reported Gastrointestinal: abdominal pain, melena Genitourinary: no symptoms reported Musculoskeletal: no symptoms reported Skin: no symptoms reported Psychiatric/Neurological: No Symptoms Reported All Other Systems Reviewed Negative Unless Noted: Yes Physical Exam Physical Exam General Appearance: No Apparent Distress Eyes: Right Eye Normal Inspection, Right Eye PERRL HEENT: PERRL/EOMI, Normal ENT Inspection, Pharynx Normal, Moist Mucous Membranes Neck: Full Range of Motion, Normal Inspection, Non Tender Respiratory: Chest Non Tender, Lungs Clear, Normal Breath Sounds, No Accessory Muscle Use, No Respiratory Distress Cardiovascular: Regular Rate, Rhythm, No Edema, No Gallop, No JVD, No Murmur, Normal Peripheral Pulses Gastrointestinal: Normal Bowel Sounds, No Organomegaly, No Pulsatile Mass, Non Tender, Soft Back: Normal Inspection, No CVA Tenderness, No Vertebral Tenderness Extremity: Normal Capillary Refill, Normal Inspection, Normal Range of Motion, Non Tender, No Calf Tenderness, No Pedal Edema Neurologic/Psychiatric: Alert, Oriented x3, No Motor/Sensory Deficits, Normal Mood/Affect Skin: Normal Color, Warm/Dry Lymphatic: No Adenopathy Assessment/Plan Admission Diagnosis Assessment: Sepsis Abdominal pain Hematochezia Anemia Flex sig revealed suspicious for ulcerative colitis plan: Discharge home Admission Status: Observation Diagnosis/Problems Diagnosis/Problems (1) Sepsis Status: Acute (2) Colitis Status: Acute (3) Anemia Status: Acute (4) Lower GI bleed Status: Acute Supervisory-Addendum Brief Verification & Attestation Participated in pt care: history, MDM, physical Personally performed: exam, history, MDM, supervision of care Care discussed with: Medical Student Procedures: n/a Results interpretation: Verified all documentation Verification and Attestation of Medical Student E/M Service A medical student performed and documented this service in my presence. I reviewed and verified all information documented by the medical student and made modifications to such information, when appropriate. I personally performed the physical exam and medical decision making. Radha Talbot Aug 02, 2021,05:14 DEBBIE ORTEGA Aug 01, 2021 10:35 RADHA TALBOT DO Aug 02, 2021 05:14
[2021-08-01] MEDS ORDERED: NAPR-1033 PO (10:56)
[2021-08-01] MEDS ORDERED: FERR-84 PO (10:56)
[2021-08-01] MEDS ORDERED: LACTATED RINGERS 1,000 ML IV ONE (14:36)
[2021-08-01] MEDS ORDERED: MIDAZOLAM 2 MG/2 ML (VERSED) VIAL ONE (14:42)
[2021-08-01] MEDS ORDERED: proPOfol 200 MG/20 ML (DIPRIVAN) VIAL IV ONE ×2 (14:42→14:51)
--- NOTE | 2021-08-01 15:13 | Anesthesia-General Post-Op ---
MAC Patient Condition Mental Status/LOC: Same as Preop Cardiovascular: Satisfactory Nausea/Vomiting: Absent Respiratory: Satisfactory Pain: Controlled Complications: Absent Post Op Complications Complications None Follow Up Care/Instructions Patient Instructions None needed. Anesthesiology Discharge Order Discharge Order Patient is doing well, no complaints, stable vital signs, no apparent adverse anesthesia problems. RHETT MCKINLEY DO Aug 01, 2021 15:13
--- NOTE | 2021-08-01 15:17 | Progress Note-Post Operative ---
Post-Operative Progess Note Surgeon (s)/Publishing Director (s) Surgeon MEGHAN CANO DO Publishing Director: GLENYS DobsonII Pre-Operative Diagnosis Rectal bleed, anemia, Colitis Post-Operative Diagnosis Ulcerative colitis Procedure & Operative Findings Date of Procedure 08/01/21 Procedure Performed/Findings Colonoscopy with random biopsies PROCEDURE NOTE: After informed consent was obtained, the patient was brought to the endoscopy suite, placed in bed in left lateral decubitus position. He was administered IV sedation by the Anesthesiologist who then monitored his vitals the entire time, heart rate, blood pressure and pulse ox and the scope was inserted, pushed all the way to about 120 cm and pushed into the cecum. On the way in had noted very severe colitis with possibly small ulcers. Looked like it was possibly Ulcerative Colitis. Once in the cecum took a picture of appendiceal orifice and noted that this area looked relatively normal. I then slowly withdrew the scope insufflating to look circumferentially at the whiteside starting in the cecum and up the ascending colon; which also looked like it was probably normal. However at the hepatic flexure, down the transverse colon, splenic flexure, into the descending colon, the sigmoid and the rectum; all had severe colitis. Through out here except in the Sigmoid; multiple random biopsies were taken, including in the rectal vault. I did not retroflex the scope but on the way out it looked like he may have Grade I internal hemorrhoids. The patient tolerated the procedure. He was recovered in endoscopy suite. Anesthesia Type IV sedation by Anesthesia Estimated Blood Loss Estimated blood loss (mL): scant Specimens/Packing Specimens Removed Cecal bx x 1 Asc colon bx x 3 Transverse colon bx desc colon bx rectal bx x 2 MEGHAN CANO DO Aug 01, 2021 15:17
[2021-08-01] MEDS ORDERED: PRD20T PO (15:56)
--- NOTE | 2021-08-01 15:57 | Endoscopy Discharge Instruct ---
Endo Procedure/Findings Findings 1.: Colitis Discharge Instructions - Activity: You might feel a little sleepy until tomorrow. This is due to the medicine you received to relax you. Until tomorrow, you should: NOT drive a car, operate machinery or power tools. NOT drink any alcoholic beverages. NOT make any important decisions or sign importortant papers. Do not return to work until tomorrow, unless otherwise instructed. Resume previous activities tomorrow. Diet: Start by taking liquids. If you tolerate liquids, advance to solid food. 1.: Colonoscopy in 1 year Notify Physician - If you experience excessive bleeding, unusual abdominal pain, fever, or chest pain, contact your doctor immediately. MEGHAN CANO DO Aug 01, 2021 15:57
--- NOTE | 2021-08-01 15:58 | Discharge Inst-Surgical ---
Discharge Inst-Surgical Depart Medication/Instructions New, Converted or Re-Newed RX: Transmitted to Pharmacy Patient Instructions Follow up Appt: Make appointment for 1 week. [phone] Instructions: May shower in 24 hours, no tub bath or soaking. Use incentive spirometer at home as directed. No Smoking Symptoms to Report: Appetite Changes, Extremity Discoloration, Numbness/Tingling, Swelling Increased, Bleeding Excessive, Eyesight Changes, Pain Increased, Urine Color Change, Constipation(Persistent), Fever over 101 degree F, Pain/Pressure in chest, Urinating Difficulty, Cough Up/Vomit Blood, Heart Beat Irreg/Pounding, Pain/Pressure in jaw, Cramps in feet or legs, Lightheadedness, Pain/Pressure in shoulder, Diarrhea(Persistent), Memory Changes Suddenly, Questions/Concerns, Weight gain consecutive days, Dizziness/Fainting, Nausea/Vomiting, Shortness of Breath, Weight gain over 2 pounds If questions or concerns contact your physician Or seek help at emergency department. Activity Activity as Tolerated: Yes Driving Instructions: You May Drive Diet Discharge Diet: No Restrictions Diet After 24 Hours: Clear Liquid if Nauseous If Any Problems/Questions/Issu: Contact Your Physician, Go to Emergency Room Skin/Wound Care Infection Signs and Symptoms: Increased Swelling, Temperature Above 101 F Bathing Instructions: MEGHAN Ca DO Aug 01, 2021 15:58
[2021-08-01] MEDS ORDERED: TROUGH ORDER-PHARMACY XX NR (23:00)
== END 2021-08-01 16:35 | disposition home or self-care (01) | DRG 872 ==
LOC: ER 19:46 → 4TH 21:15
PROVIDERS: ADMIT Internal Medicine; ATTEND Internal Medicine
PROC: 8E0ZXY6 Isolation (ICD-10-PCS; 2021-07-31)
PROC: 0DBK8ZX Excision of Ascending Colon, Via Natural or Artificial Opening Endoscopic, Diagnostic (ICD-10-PCS; 2021-08-01)
PROC: 0DBL8ZX Excision of Transverse Colon, Via Natural or Artificial Opening Endoscopic, Diagnostic (ICD-10-PCS; 2021-08-01)
PROC: 0DBM8ZX Excision of Descending Colon, Via Natural or Artificial Opening Endoscopic, Diagnostic (ICD-10-PCS; 2021-08-01)
PROC: 0DBP8ZX Excision of Rectum, Via Natural or Artificial Opening Endoscopic, Diagnostic (ICD-10-PCS; 2021-08-01)
PROC: 0DBH8ZX Excision of Cecum, Via Natural or Artificial Opening Endoscopic, Diagnostic (ICD-10-PCS; principal; 2021-08-01 14:51)
DX: A41.9 Sepsis, unspecified organism (principal); K51.90 Ulcerative colitis, unspecified, without complications; K92.1 Melena; D64.9 Anemia, unspecified; K64.0 First degree hemorrhoids
CPT/HCPCS: 36415; 74177; 80053; 81000; 82150; 82274; 83605; 83690; 83735; 84145; 85007; 85025; 85027; 85610; 85652; 85730; 86141; 87015; 87040; 87045; 87046; 87324; 87449; 87899